=== PATIENT | female | born 1970 | race Caucasian/White ===

== ENCOUNTER 2017-06-06 12:10 | Emergency (ER) | payer OTHER ==
[2017-06-06 12:18] VITALS: RESP 18; TEMP 98.2
--- NOTE | 2017-06-06 12:27 | EDPHY ---
H & P Stated Complaint: 24 HRS OF L SHOULDER/CP Time Seen by Provider: 06/06/17 12:27 HPI/ROS: CHIEF COMPLAINT: Epigastric pain HISTORY OF PRESENT ILLNESS: The patient presents to the ED with a 1 day history of sharp epigastric pain. The patient reports nausea without vomiting. She denies diarrhea. The patient denies prior history of abdominal surgery. She does have a history of irritable bowel syndrome, neuropathy and chronic Lyme disease. The patient denies any pleuritic chest pain. She denies history of exertional chest pain or shortness of breath. The patient denies any dysuria or hematuria. The patient currently rates her pain as a 5/10. REVIEW OF SYSTEMS: A comprehensive 10 point review of systems is otherwise negative aside from elements mentioned in the history of present illness. Source: Patient Exam Limitations: No limitations - Personal History LMP (Females 10-55): Irregular Current Tetanus/Diphtheria Vaccine: Unsure - Medical/Surgical History Hx Asthma: No Hx Chronic Respiratory Disease: No Hx Diabetes: No Hx Cardiac Disease: No Hx Renal Disease: No Hx Cirrhosis: No Hx Alcoholism: No Hx HIV/AIDS: No Hx Splenectomy or Spleen Trauma: No Other PMH: IBS, [id number], muscular dystrophy/ LYME DISEASE - Social History Smoking Status: Never smoked - Physical Exam Exam: General Appearance: Alert, no distress Eyes: Pupils equal and round no pallor or injection ENT, Mouth: Mucous membranes moist Respiratory: There are no retractions, lungs are clear to auscultation Cardiovascular: Regular rate and rhythm Gastrointestinal: Minimal right upper quadrant tenderness, no peritoneal signs Neurological: A&O, normal motor function, normal sensory exam, normal cranial nerves Skin: Warm and dry, no rashes Musculoskeletal: Neck is supple nontender Extremities: symmetrical, full range of motion Constitutional: Initial Vital Signs Temperature (C) 36.8 C 06/06/17 12:15 Heart Rate 69 06/06/17 12:15 Respiratory Rate 18 06/06/17 12:15 Blood Pressure 126/98 H 06/06/17 12:15 O2 Sat (%) 97 06/06/17 12:15 O2 Delivery Mode Room Air Allergies/Adverse Reactions: meperidine HCl [From Demerol] Allergy (Verified 06/06/17 12:14) Penicillins Allergy (Verified 06/06/17 12:14) Sulfa (Sulfonamide Antibiotics) Allergy (Verified 06/06/17 12:14) Tetracyclines Allergy (Verified 06/06/17 12:14) arithromycin Allergy (Uncoded 06/24/16 04:14) Home Medications: Medication Instructions Recorded Naltrexone HCl 06/06/17 Ranitidine HCl [Zantac] 150 mg PO BID #60 tablet 06/06/17 Medical Decision Making - Diagnostics EKG Interpretation: EKG: Complete interpretation has been separately recorded in the [facility] archive. Summary impression: Sinus rhythm, rate 68, no ischemic changes noted Imaging Results: Imaging Impressions Abdomen Ultrasound 06/06/17 13:16 Impression: 1. No cholelithiasis or biliary ductal dilation. 2. Mild hepatomegaly and hepatic steatosis which limits evaluation for focal hepatic lesions. 3. No ascites. 4. Pancreas obscured by bowel gas. 5. No abdominal aortic aneurysm. Findings and recommendations discussed with Emergency Department physician, Ivan Mireles at 14:12 hour, 06/06/2017. Final report concurs with initial preliminary interpretation. ED Course/Re-evaluation: The patient presents to the ED for evaluation of epigastric pain. The patient did have some radiation of pain to the shoulder. On exam she had primarily tenderness in her epigastric area. Her EKG demonstrated no evidence of ischemia. Given her right upper quadrant and epigastric tenderness a right upper quadrant ultrasound was ordered which demonstrates no evidence of cholelithiasis or cholecystitis. The patient's laboratory studies are within normal limits. She specifically has no evidence of hepatitis, pancreatitis or critical anemia. The patient was given a GI cocktail. I re-evaluated the patient at 3:00 p.m. and she reports she had complete relief of her pain with a GI cocktail. At this point time I favor dyspepsia as the likely cause of her symptoms. It is reasonable to have her begin ranitidine and Maalox for management of her symptoms. The patient is advised to return to the emergency department for worsening abdominal pain, melena or hematemesis. The patient is given the contact number of our on-call production material coordinator for any unimproved symptoms. Differential Diagnosis: Differential diagnosis considered includes cholelithiasis, cholecystitis, peptic ulcer disease, gastritis, arrhythmia, acute coronary syndrome - Data Points Laboratory Results: Laboratory Results 06/06/17 12:30 06/06/17 12:30 06/06/17 06/06/17 06/06/17 14:10 12:30 12:30 WBC RBC Hgb Hct MCV MCH MCHC RDW Plt Count MPV Neut % (Auto) Lymph % (Auto) [place] % (Auto) Eos % (Auto) Baso % (Auto) Nucleat RBC Rel Count Absolute Neuts (auto) Absolute Lymphs (auto) Absolute Monos (auto) Absolute Eos (auto) Absolute Basos (auto) Absolute Nucleated RBC Immature Gran % Immature Gran # Sodium 140 mEq/L mEq/L (134-144) Potassium 4.3 mEq/L mEq/L (3.5-5.2) Chloride 105 mEq/L mEq/L (97-110) Carbon Dioxide 21 mEq/l L mEq/l (22-31) Anion Gap 14 mEq/L mEq/L (8-16) BUN 16 mg/dL mg/dL (7-23) Creatinine 0.6 mg/dL mg/dL (0.6-1.0) Estimated GFR > 60 Glucose 122 mg/dL H mg/dL (70-100) Calcium 9.6 mg/dL mg/dL (8.5-10.4) Total Bilirubin 0.6 mg/dL mg/dL (0.1-1.4) Conjugated Bilirubin 0.3 mg/dL mg/dL (0.0-0.5) Unconjugated Bilirubin 0.3 mg/dL mg/dL (0.0-1.1) AST 18 IU/L IU/L (14-46) ALT 30 IU/L IU/L (9-52) Alkaline Phosphatase 81 IU/L IU/L (38-126) Total Protein 7.4 g/dL g/dL (6.3-8.2) Albumin 4.1 g/dL g/dL (3.5-5.0) Lipase 107 IU/L IU/L (23-300) Beta HCG, Qual NEGATIVE Urine Color COLORLESS Urine Appearance CLEAR Urine pH 6.0 (5.0-7.5) Ur Specific [place] 1.003 (1.002-1.030) Urine Protein NEGATIVE (NEGATIVE) Urine Ketones NEGATIVE (NEGATIVE) Urine Blood NEGATIVE (NEGATIVE) Urine Nitrate NEGATIVE (NEGATIVE) Urine Bilirubin NEGATIVE (NEGATIVE) Urine Urobilinogen NEGATIVE EU EU (0.2-1.0) Ur Leukocyte Esterase NEGATIVE (NEGATIVE) Urine Glucose NEGATIVE (NEGATIVE) 06/06/17 12:30 WBC 8.86 10^3/uL 10^3/uL (3.80-9.50) RBC 4.75 10^6/uL 10^6/uL (4.18-5.33) Hgb 15.8 g/dL g/dL (12.6-16.3) Hct 43.6 % % (38.0-47.0) MCV 91.8 fL fL (81.5-99.8) MCH 33.3 pg pg (27.9-34.1) MCHC 36.2 g/dL g/dL (32.4-36.7) RDW 12.4 % % (11.5-15.2) Plt Count 270 10^3/uL 10^3/uL (150-400) MPV 10.6 fL fL (8.7-11.7) Neut % (Auto) 56.1 % % (39.3-74.2) Lymph % (Auto) 25.1 % % (15.0-45.0) [place] % (Auto) 13.0 % % (4.5-13.0) Eos % (Auto) 4.2 % % (0.6-7.6) Baso % (Auto) 0.8 % % (0.3-1.7) Nucleat RBC Rel Count 0.0 % % (0.0-0.2) Absolute Neuts (auto) 4.98 10^3/uL 10^3/uL (1.70-6.50) Absolute Lymphs (auto) 2.22 10^3/uL 10^3/uL (1.00-3.00) Absolute Monos (auto) 1.15 10^3/uL H 10^3/uL (0.30-0.80) Absolute Eos (auto) 0.37 10^3/uL 10^3/uL (0.03-0.40) Absolute Basos (auto) 0.07 10^3/uL 10^3/uL (0.02-0.10) Absolute Nucleated RBC 0.00 10^3/uL 10^3/uL (0-0.01) Immature Gran % 0.8 % % (0.0-1.1) Immature Gran # 0.07 10^3/uL 10^3/uL (0.00-0.10) Sodium Potassium Chloride Carbon Dioxide Anion Gap BUN Creatinine Estimated GFR Glucose Calcium Total Bilirubin Conjugated Bilirubin Unconjugated Bilirubin AST ALT Alkaline Phosphatase Total Protein Albumin Lipase Beta HCG, Qual Urine Color Urine Appearance Urine pH Ur Specific [place] Urine Protein Urine Ketones Urine Blood Urine Nitrate Urine Bilirubin Urine Urobilinogen Ur Leukocyte Esterase Urine Glucose Medications Given: Discontinued Medications Al Hydroxide/Mg Hydroxide (Maalox Susp) 30 ml PO ONCE ONE Stop: 06/06/17 13:16 Last Admin: 06/06/17 13:23 Dose: 30 ml Hyoscyamine Sulfate (Levsin, Hyomax-Sl) 0.25 mg PO ONCE ONE Stop: 06/06/17 13:16 Last Admin: 06/06/17 13:23 Dose: 0.25 mg Sodium Chloride (Ns) 1,000 mls @ 0 mls/hr IV EDNOW ONE; Wide Open PRN Reason: Protocol Stop: 06/06/17 13:16 Last Admin: 06/06/17 13:23 Dose: 1,000 mls Lidocaine (Lidocaine 2% Viscous) 15 ml PO ONCE ONE Stop: 06/06/17 13:16 Last Admin: 06/06/17 13:23 Dose: 15 ml Ondansetron HCl (Zofran) 4 mg IVP EDNOW ONE Stop: 06/06/17 13:16 Last Admin: 06/06/17 13:23 Dose: 4 mg Departure - Departure Disposition: Home, Routine, Self-Care Clinical Impression: Epigastric pain Condition: Good Instructions: Epigastric Pain (ED) Additional Instructions: 1. Begin ranitidine as prescribed twice daily. 2. Maalox as needed for symptoms of recurrent abdominal pain. 3. Please follow up with your regular physician and the production material coordinator you have been referred to for any unimproved symptoms. 4. Please return to the ED for markedly worsening symptoms, difficulty breathing , vomiting of blood, dark tarry stools or other concerns. Referrals: BLADIMIR CARLSON [Primary Care Provider] - As per Instructions Eda Car MD [Medical Doctor] - As per Instructions
--- NOTE | 2017-06-06 12:31 | CPEKG ---
Heart Rate: 68 RR Interval: 882 P-R Interval: 156 QRSD Interval: 86 QT Interval: 396 QTC Interval: 422 P [place]: 46 QRS [place]: 22 T Wave [place]: 33 EKG Severity - NORMAL ECG - EKG Impression: SINUS RHYTHM Electronically Signed By: Ivan Mireles 06-Jun-2017 12:36:32
[2017-06-06 13:02] VITALS: O2SAT 95
[2017-06-06] MEDS ORDERED: ONDANSETRON 4 MG/2 ML VIAL IVP ONE (13:15)
[2017-06-06] MEDS ORDERED: HYOSCYAMINE SULFATE 0.125 MG TAB PO ONE (13:15)
[2017-06-06] MEDS ORDERED: NS 1,000 ML IV ONE (13:15)
[2017-06-06] MEDS ORDERED: LIDOCAINE 2% VISCOUS 15 ML UDCUP PO ONE (13:15)
[2017-06-06] MEDS ORDERED: MAG HYDROX/AL HYDROX/SIMETH 30 ML UDCUP PO ONE (13:15)
[2017-06-06 13:25] LABS: % IMMATURE GRANULYOCYTES 0.8 % (0.0-1.1); ABSOLUTE IMMATURE GRANULOCYTES 0.07 10^3/uL (0.00-0.10); ADD DIFF? NO; ADD MORPH? NO; ADD SCAN? NO; ATYPICAL LYMPHOCYTE FLAG 0 (0-99); FRAGMENT RBC FLAG 0 (0-99); HEMATOCRIT 43.6 % (38.0-47.0); HEMOGLOBIN 15.8 g/dL (12.6-16.3); LEFT SHIFT FLG 0 (0-99); LIPEMIA HEMOLYSIS FLAG 90 (0-99); MEAN CELL HEMOGLOBIN 33.3 pg (27.9-34.1); MEAN CELL HEMOGLOBIN CONCENTR. 36.2 g/dL (32.4-36.7); MEAN CELL VOLUME 91.8 fL (81.5-99.8); MEAN PLATELET VOLUME 10.6 fL (8.7-11.7); PLATELET CLUMPS FLAG 20 (0-99); PLATELET COUNT 270 10^3/uL (150-400); RED BLOOD CELL COUNT 4.75 10^6/uL (4.18-5.33); RED CELL DISTRIBUTION WIDTH 12.4 % (11.5-15.2)
[2017-06-06 13:27] VITALS: PULSE 70
[2017-06-06 13:29] LABS: ALANINE AMINOTRANSFERASE 30 IU/L (9-52); ALBUMIN 4.1 g/dL (3.5-5.0); ALKALINE PHOSPHATASE 81 IU/L (38-126); ANION GAP 14 mEq/L (8-16); ASPARTATE AMINOTRANSFERASE 18 IU/L (14-46); BILIRUBIN,TOTAL 0.6 mg/dL (0.1-1.4); BILIRUBIN-CONJUGATED 0.3 mg/dL (0.0-0.5); BILIRUBIN-UNCONJUGATED 0.3 mg/dL (0.0-1.1); CALCIUM 9.6 mg/dL (8.5-10.4); CARBON DIOXIDE 21 mEq/l (22-31); CHLORIDE 105 mEq/L (97-110); CREATININE 0.6 mg/dL (0.6-1.0); GLOMERULAR FILTRATION RATE > 60; GLUCOSE 122 mg/dL (70-100); POTASSIUM 4.3 mEq/L (3.5-5.2); SODIUM 140 mEq/L (134-144); TOTAL PROTEIN 7.4 g/dL (6.3-8.2)
[2017-06-06 14:19] LABS: COLOR COLORLESS; LEUKOCYTE ESTERASE,URINE NEGATIVE (NEGATIVE); NITRITE,URINE NEGATIVE (NEGATIVE)
[2017-06-06 15:18] VITALS: BP 115/80
== END 2017-06-06 15:18 | disposition home or self-care (01) ==
DX: R10.13 Epigastric pain (principal); E86.9 Volume depletion, unspecified
CPT/HCPCS: 96374; J2405

== ENCOUNTER 2017-06-09 11:03 | Emergency (ER) | payer OTHER ==
[2017-06-09 11:10] VITALS: RESP 16; TEMP 97.9
[2017-06-09] MEDS ORDERED: ONDANSETRON 4 MG/2 ML VIAL IVP ONE (11:38)
--- NOTE | 2017-06-09 11:41 | CPEKG ---
Heart Rate: 68 RR Interval: 882 P-R Interval: 120 QRSD Interval: 92 QT Interval: 380 QTC Interval: 405 P [place]: -37 QRS [place]: 13 T Wave [place]: 18 EKG Severity - NORMAL ECG - EKG Impression: SINUS RHYTHM Electronically Signed By: Staci Bella 09-Jun-2017 16:23:09
[2017-06-09 11:55] LABS: % IMMATURE GRANULYOCYTES 0.4 % (0.0-1.1); ABSOLUTE IMMATURE GRANULOCYTES 0.03 10^3/uL (0.00-0.10); ADD DIFF? NO; ADD MORPH? NO; ADD SCAN? NO; ATYPICAL LYMPHOCYTE FLAG 0 (0-99); FRAGMENT RBC FLAG 0 (0-99); HEMATOCRIT 40.6 % (38.0-47.0); HEMOGLOBIN 14.8 g/dL (12.6-16.3); LEFT SHIFT FLG 0 (0-99); LIPEMIA HEMOLYSIS FLAG 90 (0-99); MEAN CELL HEMOGLOBIN 33.1 pg (27.9-34.1); MEAN CELL HEMOGLOBIN CONCENTR. 36.5 g/dL (32.4-36.7); MEAN CELL VOLUME 90.8 fL (81.5-99.8); MEAN PLATELET VOLUME 10.1 fL (8.7-11.7); PLATELET CLUMPS FLAG 0 (0-99); PLATELET COUNT 243 10^3/uL (150-400); RED BLOOD CELL COUNT 4.47 10^6/uL (4.18-5.33); RED CELL DISTRIBUTION WIDTH 12.3 % (11.5-15.2)
[2017-06-09] MEDS ORDERED: KETOROLAC 30 MG/1 ML SDV IVP ONE (12:09)
[2017-06-09 12:17] LABS: TROPONIN I < 0.012 ng/mL (0.000-0.034)
[2017-06-09 12:22] LABS: ALANINE AMINOTRANSFERASE 32 IU/L (9-52); ALBUMIN 3.9 g/dL (3.5-5.0); ALKALINE PHOSPHATASE 75 IU/L (38-126); ANION GAP 12 mEq/L (8-16); ASPARTATE AMINOTRANSFERASE 20 IU/L (14-46); BILIRUBIN,TOTAL 0.6 mg/dL (0.1-1.4); BILIRUBIN-CONJUGATED 0.2 mg/dL (0.0-0.5); BILIRUBIN-UNCONJUGATED 0.4 mg/dL (0.0-1.1); CALCIUM 9.4 mg/dL (8.5-10.4); CARBON DIOXIDE 26 mEq/l (22-31); CHLORIDE 105 mEq/L (97-110); CREATININE 0.6 mg/dL (0.6-1.0); GLOMERULAR FILTRATION RATE > 60; GLUCOSE 114 mg/dL (70-100); POTASSIUM 3.4 mEq/L (3.5-5.2); SODIUM 143 mEq/L (134-144); TOTAL PROTEIN 7.3 g/dL (6.3-8.2)
--- NOTE | 2017-06-09 14:16 | EDPHY ---
H & P Smoking Status: Never smoked Time Seen by Provider: 06/09/17 11:14 HPI/ROS: CHIEF COMPLAINT: Left scapular pain HISTORY OF PRESENT ILLNESS: 46-year-old female seen in the ER 2 days ago for complaints of left shoulder pain, at which time she had ultrasonography of her epigastrium which was essentially normal show no signs of cholecystitis. She is complaining of ongoing left scapular pain, was subsequently discharged from the ER, seen by her primary care provider yesterday, given analgesia. She presents to the ER complaining of continued breakthrough pain after tramadol and Flexeril. She denies definitive pattern to her discomfort, area is definitely tender to palpation, the pain is not described as pleuritic however. She denies: Trauma, dyspnea, syncope or near syncope, headache, neck pain, dizziness, syncope or near syncope , nausea, vomiting, abdominal pain, bowel movement abnormality, urinary abnormality REVIEW OF SYSTEMS: A ten point review of systems was performed and is negative with the exception of the items mentioned in the HPI PAST MEDICAL & SURGICAL HISTORY: no vasculopathy history. No cardiac disease history. SOCIAL HISTORY: nonsmoker. No drug use. PHYSICAL EXAM (Prior to examination, patient consented to physical exam, hands were washed and my usual and customary physical exam procedures followed) 1) GENERAL: Well-developed, well-nourished, alert and oriented. Appears uncomfortable 2) HEAD: Normocephalic, atraumatic 3) HEENT: Pupils equal, round, reactive to light bilaterally. Sclera anicteric. Nasopharynx, oropharynx, clear, no lesions. Ears bilaterally with normal tympanic membranes. 4) NECK: Full range of motion, no meningeal signs. 5) LUNGS: Clear auscultation bilaterally, no wheezes, no rhonchi, no retractions. 6) HEART: Regular rate and rhythm, no murmur, no heave, no gallop. 7) ABDOMEN: No guarding, no rebound, no focal tenderness, negative McBurney's, negative Ortiz's, negative Rovsing's, negative peritoneal sign, 8) MUSCULOSKELETAL: Moving all extremities, no focal areas of tenderness, no obvious trauma. No peripheral edema or discoloration. 9) BACK: No CVA tenderness, tender to palpation left medial scapular region. No visible abnormality. No vesicles or rash. no midline vertebral tenderness, no fluctuance, no step-off, no obvious trauma, no visual or palpable abnormality. 10) SKIN: No rash, no petechiae. 11) Psychiatric: Patient is oriented X 3, there is no agitation. DIFFERENTIAL DIAGNOSIS: in no particular order including but not limited to pulmonary embolus, pulmonary infectious etiology, vasculopathy, aortic dissection, AL, acute cholecystitis (Zac Garrido) Constitutional: Initial Vital Signs Temperature (C) 36.6 C 06/09/17 11:07 Heart Rate 87 06/09/17 11:07 Respiratory Rate 16 06/09/17 11:07 Blood Pressure 130/90 H 06/09/17 11:07 O2 Sat (%) 97 06/09/17 11:07 O2 Delivery Mode Room Air Allergies/Adverse Reactions: meperidine HCl [From Demerol] Allergy (Verified 06/06/17 12:14) Penicillins Allergy (Verified 06/06/17 12:14) Sulfa (Sulfonamide Antibiotics) Allergy (Verified 06/06/17 12:14) Tetracyclines Allergy (Verified 06/06/17 12:14) arithromycin Allergy (Uncoded 06/24/16 04:14) Home Medications: Medication Instructions Recorded Naltrexone HCl 06/06/17 Ranitidine HCl [Zantac] 150 mg PO BID #60 tablet 06/06/17 Hydrocodone/APAP 5/325 [Dahlgren 1 tab PO Q6 PRN #15 tab 06/09/17 5/325 (RX)] methylPREDNISolone [Medrol Dose 4 mg PO DAILY #1 ea 06/09/17 Ruiz] traMADol 06/09/17 MDM/Departure - MDM Imaging Results: Images reviewed myself (Zac Garrido) Medications Given: Discontinued Medications Ketorolac Tromethamine (Toradol) 30 mg IVP EDNOW ONE Stop: 06/09/17 12:10 Last Admin: 06/09/17 12:32 Dose: 30 mg Morphine Sulfate (Morphine) 4 mg IVP EDNOW ONE Stop: 06/09/17 11:27 Last Admin: 06/09/17 11:46 Dose: 4 mg Ondansetron HCl (Zofran) 4 mg IVP EDNOW ONE Stop: 06/09/17 11:39 Last Admin: 06/09/17 11:46 Dose: 4 mg ED Course/Re-evaluation: 2:13 p.m.: This patient was re-evaluated with serial examinations, observed in the ER for period of time. Patient was also seen and examined by Dr. Staci Bella. Patient has negative D-dimer which I think adequately excludes pulmonary embolus in this patient whom I have a low to moderate index suspicion for pulmonary embolus. I have explained to the patient that I think that aortic dissection, pulmonary embolus, AL, cardiac etiology, pulmonary infectious etiology are less than likely at this time., I do not think that CT angiography of the chest is definitively indicated at this time. We discussed possibility of thoracic discogenic etiology. I do not think that emergent MRI is indicated at this time however this may be indicated on outpatient basis. I have given her the name of on-call spinal surgery Dr. Fly Thurman. I am prescribing her Percocet, Medrol Dosepak. She feels comfortable being discharged. All questions and concerns addressed by myself. Doubt acute cholecystitis (Zac Garrido) I have evaluated and participated in the management of this patient. My co- signature indicates that I have reviewed this chart and that I agree with the findings and the plan of care as documented. My personal history and physical findings include: General healthy 46-year-old female who presents with left subscapular pain, nontraumatic. She is currently taking Flexeril and tramadol without relief. This is her 3rd visit for examination concerning this pain. She has been seen once in the emergency department once by her primary care physician. She denies trauma, neck pain, pleuritic pain, shortness of breath, new numbness, new weakness, difficulty walking, bowel or bladder problems. On examination lungs are clear, heart is regular rate and rhythm, abdomen is soft and nontender without organomegaly. Strength is 5/5 with testing of all major motor groups of upper and lower extremities. Sensation is intact to light touch over upper and lower extremities. Deep tendon reflexes are 2+ in the biceps bilaterally, 1+ in the triceps bilaterally, and 3+ in the knees bilaterally. No clonus. I agree with the evaluation that has been performed thus far. PE unlikely in this low risk patient based upon Well's scoring. I do not suspect an infectious etiology. She does not have abdominal tenderness and I do not think that this pain is referred from the abdomen. She had a gallbladder ultrasound performed this week which was negative. I do not suspect ACS or aortic dissection. Cervical or thoracic disc is a possibility. I feel that she can safely return home and continue with symptomatic measures. Danger signs that should prompt her to be re-evaluated immediately were reviewed with her. (Staci Bella) - Depart Disposition: Home, Routine, Self-Care Clinical Impression: Acute thoracic back pain Qualifiers: Back pain laterality: left Qualified Code(s): M54.6 - Pain in thoracic spine Condition: Good Instructions: Back Pain (ED) Additional Instructions: Return to the ER if you develop chest pain, shortness of breath, nausea, vomiting or any other symptoms that concern you. Prescriptions: Hydrocodone/APAP 5/325 [[place]ahl[place] 5/325 (RX)] 1 tab PO Q6 PRN #15 tab PRN Reason: Pain, Severe methylPREDNISolone [Medrol Dose Ruiz] 4 mg PO DAILY #1 ea Referrals: BLADIMIR CARLSON [Primary Care Provider] - 2-3 days, call for appt. Travis Thurman MD [Medical Doctor] - 2-3 days, call for appt. (Dr. riley is a spine surgeon)
[2017-06-09 14:43] VITALS: BP 126/79; PULSE 65; O2SAT 97
== END 2017-06-09 14:41 | disposition home or self-care (01) ==
DX: M54.6 Pain in thoracic spine (principal)
CPT/HCPCS: 96374; J1885; J2405

== ENCOUNTER 2017-10-06 10:24 | Emergency (ER) | payer OTHER ==
[2017-10-06 10:39] VITALS: O2SAT 96
--- NOTE | 2017-10-06 10:58 | EDPHY ---
H & P Time Seen by Provider: 10/06/17 10:58 HPI/ROS: HPI: This is a 47-year-old female who presents with Chief Complaint: Flu sxs since Mon;prod cough w/blood streaks this am Location: Chest Quality: Cough Duration: 5 days Signs and Symptoms: no fever, no nausea, no vomiting, no diarrhea, no urinary symptoms, no chest pain, no shortness of breath, + wheezing, + cough, no sore throat, no neck stiffness, no joint pain, no swollen glands, no ear pain, no rash Timing: Intermittent episodes, worsened Severity: Moderate Context: Patient reports that she has Lyme disease and on stem cell therapy presents with 5 day history of productive hacking cough that is worse at night and not improving. No history of lung disease. Noted some blood tinged sputum today. No recent foreign travel. Nonsmoker. The she started have fever, body aches, fatigue, joint pain. She thinks she may have flu. Modifying Factors: None Comment: ROS: see HPI Constitutional: + fever, no chills, no weight loss Eyes: No blurred vision Respiratory: No shortness of breath, + cough Cardiovascular: No chest pain, no palpitations Gastrointestinal: No nausea, no vomiting, no diarrhea, no hematemesis, no blood in stool Genitourinary: No dysuria, no blood in urine Extremities: No myalgias, no edema Neurologic: No weakness, no numbness Skin: No rashes, no petechiae Hematologic: No bruising, no bleeding MEDICAL/SURGICAL/SOCIAL HISTORY: Medical history: IBS, [id number], muscular dystrophy/ LYME DISEASE Surgical history: Denies Social history: Family history noncontributory. CONSTITUTIONAL: Ill and toxic appearing adult white female, awake and alert, no obvious distress HEENT: Atraumatic and normocephalic, PERRL, EOMI. Tympanic membranes clear. Oropharynx clear, no exudate and moist pink mucosa. Airway patent. No lymphadenopathy. No meningismus. Cardiovascular: Normal S1/S2, regular rate, regular rhythm, without murmur rub or gallop. PULMONARY/CHEST: Symmetrical and nontender. Faint expiratory wheezing heard at the bases. Good air movement. No accessory muscle usage. ABDOMEN: Soft, nondistended, nontender, no rebound, no guarding, no peritoneal signs, no masses or organomegaly. No CVAT. EXTREMITIES: 2/2 pulses, strength 5/5, no deformities, no clubbing, no cyanosis or edema. NEUROLOGICAL: no focal neuro deficits. GCS 15. SKIN: Warm and dry, no erythema. no rash. Good capillary refill. Source: Patient Exam Limitations: No limitations - Personal History LMP (Females 10-55): Post Menopausal Current Tetanus Diphtheria and Acellular Pertussis (TDAP): Yes - Medical/Surgical History Hx Asthma: No Hx Chronic Respiratory Disease: No Hx Diabetes: No Hx Cardiac Disease: No Hx Renal Disease: No Hx Cirrhosis: No Hx Alcoholism: No Hx HIV/AIDS: No Hx Splenectomy or Spleen Trauma: No Other PMH: IBS, [id number], muscular dystrophy/ LYME DISEASE - Social History Smoking Status: Never smoked Constitutional: Initial Vital Signs Temperature (C) 37 C 10/06/17 10:30 Heart Rate 80 10/06/17 10:30 Respiratory Rate 18 10/06/17 10:30 Blood Pressure 132/101 H 10/06/17 10:30 O2 Sat (%) 96 10/06/17 10:30 O2 Delivery Mode Room Air Allergies/Adverse Reactions: Penicillins Allergy (Severe, Verified 10/06/17 10:36) Anaphylaxis Sulfa (Sulfonamide Antibiotics) Allergy (Severe, Verified 10/06/17 10:36) Anaphylaxis meperidine HCl [From Demerol] Allergy (Mild, Verified 10/06/17 10:36) GI Tetracyclines Allergy (Unknown, Verified 10/06/17 10:36) emycin Allergy (Unknown, Uncoded 10/06/17 10:36) Home Medications: Medication Instructions Recorded Albuterol Sulfate [Proair Hfa] 1 - 2 puffs IH Q4 PRN #1 hfa.aer.ad 10/06/17 Azithromycin [Zithromax] 250 mg PO DAILY #6 tab 10/06/17 Benzonatate [Tessalon Pearles (RX)] 100 mg PO Q6 PRN #12 cap 10/06/17 Gabapentin [Neurontin 400 MG (*)] 400 mg PO HS 10/06/17 Naltrexone HCl [Revia 50mg (RX)] 50 mg PO 10/06/17 Medical Decision Making - Diagnostics Imaging Results: Imaging Impressions Chest X-Ray 10/06/17 11:00 Impression: Suspect airways disease. No pneumonia. ED Course/Re-evaluation: Patient is very opinion regarding any medications. After long discussion it was decided to obtain a flu swab, chest x-ray. Given DuoNeb, Tessalon Perles, [place] Vital signs reviewed and show no respiratory distress/hypoxia. Improved aeration after DuoNeb but still wheezing; albuterol nebulizer ordered Influenza negative Chest x-ray my read shows no opacity, no effusion, no pneumothorax, no widened mediastinum. Appears to be a viral bronchitis; but due to immunocompromised; will start macrolide This patient was seen under the supervision of my secondary supervising physician. I evaluated care for this patient independently. Differential Diagnosis: Adult fever including but not limited to viral syndromes including influenza, urinary tract infection, pneumonia and sepsis. - Data Points Laboratory Results: 10/06/17 11:13 Nasal Influenza A PCR NEGATIVE FOR FLU A (NEGATIVE) Nasal Influenza B PCR NEGATIVE FOR FLU B (NEGATIVE) Medications Given: Discontinued Medications Albuterol (Proventil Neb) 3 ml IH EDNOW ONE Stop: 10/06/17 11:40 Last Admin: 10/06/17 11:41 Dose: 3 ml Albuterol/Ipratropium (Duoneb) 3 ml IH EDNOW ONE Stop: 10/06/17 11:10 Last Admin: 10/06/17 11:11 Dose: 3 ml Benzonatate (Tessalon Pearles) 200 mg PO EDNOW ONE Stop: 10/06/17 11:10 Last Admin: 10/06/17 11:34 Dose: 200 mg Departure - Departure Disposition: Home, Routine, Self-Care Clinical Impression: Acute bacterial bronchitis Condition: Good Instructions: Acute Bronchitis (ED) Additional Instructions: Chest x-ray does not show any clear signs of pneumonia. As you are immunocompromised and have bronchitis; will treat for bacterial infection. Start Azithromycin x 5 days. Use Albuterol inhaler every 4 hr as needed for shortness of breath or wheezing. Take Tessalon Perles every 6 hr as needed for cough. Influenza test was negative. Consume a minimum of 8-10 glasses of water or electrolyte fluid replacement drinks that include Gatorade, Powerade, Pedialyte. Rest as much as possible until you are feeling better. lease wash your hands frequently, cover your cough, and stay home until you are symptom free. Referrals: BLADIMIR CARLSON [Primary Care Provider] - As per Instructions Prescriptions: Albuterol Sulfate [Proair Hfa] 1 - 2 puffs IH Q4 PRN #1 hfa.aer.ad PRN Reason: Short Of Breath/Dyspnea Azithromycin [Zithromax] 250 mg PO DAILY #6 tab Benzonatate [Tessalon Pearles (RX)] 100 mg PO Q6 PRN #12 cap PRN Reason: Cough, Moderate
[2017-10-06] MEDS ORDERED: IPRATROPIUM/ALBUTEROL 3 ML DEYVIAL ONE (11:09)
[2017-10-06] MEDS ORDERED: BENZONATATE 100 MG CAP PO ONE (11:09)
[2017-10-06] MEDS ORDERED: IPRATROPIUM/ALBUTEROL 3 ML DEYVIAL IH ONE (11:09)
[2017-10-06] MEDS ORDERED: HYDROCODONE/APAP 5/325 TAB PO ONE (11:09)
[2017-10-06] MEDS ORDERED: ALBUTEROL 3 ML DEYVIAL IH ONE (11:39)
[2017-10-06 12:25] VITALS: BP 140/70; PULSE 76; RESP 14; TEMP 98.2
== END 2017-10-06 12:24 | disposition home or self-care (01) ==
DX: J20.8 Acute bronchitis due to other specified organisms (principal); B96.89 Other specified bacterial agents as the cause of diseases classified elsewhere
CPT/HCPCS: J7613